=== PATIENT | female | born 2000 | race Caucasian/White ===

== ENCOUNTER 2018-03-01 04:05 | Emergency (ER) | payer BC, OTHER ==
[~2018-03-01] VITALS: Ht 160 cm; Wt 48.4 kg
[2018-03-01 04:08] VITALS: TEMP 36.3; Ht 160 cm; Wt 48.4 kg
[2018-03-01] MEDS ORDERED: SODIUM CHLORIDE 0.9% 1000ML 1,000 ML IV STA (04:21)
--- NOTE | 2018-03-01 04:27 | EMERGENCY ROOM VISIT NOTE ---
History Report prepared by Violeta: Lashay Hicks Under the Supervision of: Dr. Josafat Yap M.D. First contact with patient: 04:12 Chief Complaint: ABDOMINAL PAIN Stated Complaint: STOMACH PAIN,FEVERISH,CHILLS,VOMITING History of Present Illness The patient is a 17 year old female who presents to the Emergency Room with complaints of worsening abdominal pain starting a few days ago. The patient states that she vomited tonight and became diaphoretic after. The patient complains of feeling feverish, chills, loss of appetite, some burning with urination, constipation, and diarrhea. She states that when she can use the restroom, it is very minimal diarrhea. She reports that she took a laxative with no relief. The patient denies hematochezia, rash, nausea, a history of abdominal surgeries, concern for STDs, and the chance of . She notes that her parents don't know she is here, but she has tried calling them multiple times. The patient currently rates her pain as a 1/10 in severity. Source of History: patient Onset: a few days ago Position: abdomen Symptom Intensity: 1/10 Timing: worsening Associated Symptoms: + chills, + diaphoresis, + vomiting, + diarrhea, + urinary symptoms, No nausea, No hematochezia, No rash Note: The patient complains of feeling feverish, loss of appetite, and constipation. Review of Systems See HPI for pertinent positives & negatives. A total of 10 systems reviewed and were otherwise negative. Past Medical & Surgical Medical Problems: (1) No Known Active Medical Problems Family History Patient reports no known family medical history. Social History Smoking Status: Never Smoker Marital Status: single Housing Status: lives with roommate Occupation Status: [employer] student Current/Historical Medications Scheduled Control Pills ( Control Pills), 1 TAB PO DAILY Famotidine (Pepcid), 20 MG PO DIRECTED Allergies Coded Allergies: No Known Allergies (Unverified , 03/01/18) Physical Exam Vital Signs Date Time Temp Pulse Resp B/P (MAP) Pulse Ox O2 Delivery O2 Flow Rate FiO2 03/01/18 05:55 71 18 110/74 100 Room Air 03/01/18 04:08 36.3 89 18 111/74 98 Room Air Physical Exam GENERAL: Patient is mildly anxious appearing and in no acute distress. EYES: No scleral icterus, unremarkable pupils. ENT: Mucous membranes dry, no nasal congestion. NECK: No masses appreciated, no meningismus, trachea is midline. RESPIRATORY: No dyspnea. Clear to auscultation and equal bilaterally. No wheeze , no rhonchi. CARDIOVASCULAR: Regular rate and rhythm. No murmurs, rubs, gallops appreciated. GASTROINTESTINAL: Abdomen soft, nontender, no peritonitis. Bowel sounds positive. No masses appreciated. BACK: No midline tenderness, no CVA tenderness EXTREMITIES: Normal motion all extremities, no cyanosis, no edema. NEUROLOGIC: Alert and oriented, no acute motor or sensory deficits, no focal weakness, cranial nerves grossly intact. SKIN: No rash, no jaundice, no diaphoresis. Medical Decision & Procedures ER Provider Diagnostic Interpretation: KUB: The results were interpreted by me. Nonspecific bowel gas pattern. No obstruction appreciated. Stool continues through to rectum. Laboratory Results 03/01/18 04:20 Red Blood Count 4.85, Mean Corpuscular Volume 89.7, Mean Corpuscular Hemoglobin 31.3, Mean Corpuscular Hemoglobin Concent 34.9, Mean Platelet Volume 10.4, Neutrophils (%) (Auto) 60.9, Lymphocytes (%) (Auto) 28.9, Monocytes (%) (Auto) 7.0, Eosinophils (%) (Auto) 2.7, Basophils (%) (Auto) 0.3, Neutrophils # (Auto) 6.53, Lymphocytes # (Auto) 3.09, Monocytes # (Auto) 0.75, Eosinophils # (Auto) 0.29, Basophils # (Auto) 0.03 03/01/18 04:20 Test 03/01/18 04:20 03/01/18 05:05 White Blood Count 10.71 K/uL (4.8-10.8) Red Blood Count 4.85 M/uL (4.2-5.4) Hemoglobin 15.2 g/dL (12.0-16.0) Hematocrit 43.5 % (37-47) Mean Corpuscular Volume 89.7 fL (80-100) Mean Corpuscular Hemoglobin 31.3 pg (25-34) Mean Corpuscular Hemoglobin Concent 34.9 g/dl (32-36) Platelet Count 237 K/uL (130-400) Mean Platelet Volume 10.4 fL (7.4-10.4) Neutrophils (%) (Auto) 60.9 % Lymphocytes (%) (Auto) 28.9 % Monocytes (%) (Auto) 7.0 % Eosinophils (%) (Auto) 2.7 % Basophils (%) (Auto) 0.3 % Neutrophils # (Auto) 6.53 K/uL (1.4-6.5) Lymphocytes # (Auto) 3.09 K/uL (1.2-3.4) Monocytes # (Auto) 0.75 K/uL (0.11-0.59) Eosinophils # (Auto) 0.29 K/uL (0-0.5) Basophils # (Auto) 0.03 K/uL (0-0.2) RDW Standard Deviation 40.5 fL (36.4-46.3) RDW Coefficient of Variation 12.4 % (11.5-14.5) Immature Granulocyte % (Auto) 0.2 % Immature Granulocyte # (Auto) 0.02 K/uL (0.00-0.02) Anion Gap 9.0 mmol/L (3-11) Est Creatinine Clear Calc Drug Dose 83.3 ml/min Estimated GFR () 118.5 Estimated GFR (Non- 102.2 BUN/Creatinine Ratio 11.1 (10-20) Calcium Level 9.3 mg/dl (8.5-10.1) Total Bilirubin 0.5 mg/dl (0.2-1) Direct Bilirubin 0.2 mg/dl (0-0.2) Aspartate Amino Transf (AST/SGOT) 13 U/L (15-37) Alanine Aminotransferase (ALT/SGPT) 22 U/L (12-78) Alkaline Phosphatase 58 U/L (45-117) Total Protein 8.2 gm/dl (6.4-8.2) Albumin 4.1 gm/dl (3.4-5.0) Lipase 157 U/L (73-393) Urine Color YELLOW Urine Appearance CLOUDY (CLEAR) Urine pH 5.0 (4.5-7.5) Urine Specific [place] 1.028 (1.000-1.030) Urine Protein NEG (NEG) Urine Glucose (UA) NEG (NEG) Urine Ketones NEG (NEG) Urine Occult Blood 1+ (NEG) Urine Nitrite NEG (NEG) Urine Bilirubin NEG (NEG) Urine Urobilinogen NEG (NEG) Urine Leukocyte Esterase TRACE (NEG) Urine WBC (Auto) 10-30 /hpf (0-5) Urine RBC (Auto) 0-4 /hpf (0-4) Urine Hyaline Casts (Auto) 5-10 /lpf (0-5) Urine Epithelial Cells (Auto) >30 /lpf (0-5) Urine Bacteria (Auto) 2+ (NEG) Urine Test NEG (NEG) Laboratory results as reviewed by me. Medications Administered Medications (Trade) Dose Ordered Sig/David Route Start Time Stop Time Status Last Admin Dose Admin Sodium Chloride 1,000 ml @ 999 mls/hr Q1H1M STAT IV 03/01/18 04:21 03/01/18 05:21 DC 03/01/18 04:33 999 MLS/HR Ranitidine HCl (zANTac SYRUP) 150 mg NOW ONCE PO 03/01/18 05:45 03/01/18 05:46 DC 03/01/18 05:53 150 MG Lidocaine HCl (Viscous Lidocaine 2% Soln) 20 ml STK-MED ONCE .ROUTE 03/01/18 05:51 03/01/18 05:52 DC 03/01/18 05:53 20 ML Al Hydroxide/Mg Hydroxide (Maalox Susp) 30 ml STK-MED ONCE .ROUTE 03/01/18 05:51 03/01/18 05:52 DC 03/01/18 05:53 30 ML Ondansetron HCl (ZOFRAN ODT 4MG Home Pack) 1 homepack UD ONCE PO 03/01/18 06:45 03/01/18 06:46 DC 03/01/18 06:41 1 HOMEPACK ED Course 0417: The patient was evaluated in room A10. A complete history and physical exam was performed. 0421: Ordered NSS 1000 ml @ 999 mls/hr IV. Medical Decision Differential: Gastroenteritis, Food Borne, Esophageal Perforation, , Electrolyte Abnormality, Dehydration, Intraabdominal Infection, UTI/ Pyelonephritis, Bowel Obstruction, Biliary Pathology, amongst other pathology entertained. 17 yr old female with vague complaints of abdominal pain. After several discussions with his seems like primary issue is epigastric discomfort, gnawing and coming in waves. This leads to nausea and even vomited yesterday. Notes decreased BMs as well. Suspect much of this is gastritis as admits increased stress, poor appetite with irregular meals, recent change in BC. She has unremarkable KUB, normal labs and completely benign abdominal exam on repeat exams. She is not septic and does not have surgical abdomen. Symptoms and labs are not consistent with hepatic/portal vein thrombosis. Exam is not consistent with cholecystitis. She has no TTP in RLQ (nor elsewhere for that matter). She is not . UA with 2+ bacteria but with 30+ epis and no UTI symptoms I do not feel this is UTI and will await culture. She looks well but is clearly a bit on the anxious side. Initially when going to discharge her she noted pain coming back and thus given GI Cocktail with resolution. Will send home with nausea meds and advised Pepcid (or other anti-acid) for next week, better eating, and if worsening/other concerns RTED for further evaluation. Medication Reconcilliation Current Medication List: was personally reviewed by me Impression Primary Impression: Epigastric abdominal pain Additional Impression: Nausea & vomiting Scribe Attestation The scribe's documentation has been prepared under my direction and personally reviewed by me in its entirety. I confirm that the note above accurately reflects all work, treatment, procedures, and medical decision making performed by me. Departure Information Dispostion Home / Self-Care Prescriptions Famotidine (Pepcid) 20 Mg Tab 20 MG PO DIRECTED, #30 TAB Take twice daily for 5 days and then once daily. Prov: Josafat Yap M.D. 03/01/18 Patient Instructions ED Epigastric Pain LILIA, [facility] Problem Qualifiers
[2018-03-01] MEDS ORDERED: BCPILLS PO (04:30)
[2018-03-01 04:44] LABS: BASO % 0.3 %; BASO ABS # 0.03 K/uL (0-0.2); EOS % 2.7 %; EOS ABS # 0.29 K/uL (0-0.5); HEMATOCRIT 43.5 % (37-47); HEMOGLOBIN 15.2 g/dL (12.0-16.0); IG# 0.02 K/uL (0.00-0.02); LYMPH % 28.9 %; LYMPH ABS # 3.09 K/uL (1.2-3.4); MEAN CELL VOLUME 89.7 fL (80-100); MEAN CORPUSCULAR HEMOGLOBIN 31.3 pg (25-34); MEAN CORPUSCULAR HGB CONC 34.9 g/dl (32-36); MEAN PLATELET VOLUME 10.4 fL (7.4-10.4); MONO ABS # 0.75 K/uL (0.11-0.59); NEUT % 60.9 %; NEUT ABS # 6.53 K/uL (1.4-6.5); PLATELET COUNT 237 K/uL (130-400); RED CELL DISTRIBUTION WIDTH CV 12.4 % (11.5-14.5); RED CELL DISTRIBUTION WIDTH SD 40.5 fL (36.4-46.3); WHITE BLOOD COUNT 10.71 K/uL (4.8-10.8)
[2018-03-01 05:07] LABS: ALBUMIN 4.1 gm/dl (3.4-5.0); CALCIUM 9.3 mg/dl (8.5-10.1); CREATININE 0.83 mg/dl (0.60-1.20); TOTAL PROTEIN 8.2 gm/dl (6.4-8.2)
[2018-03-01 05:11] LABS: POTASSIUM 4.1 mmol/L (3.5-5.1)
[2018-03-01] MEDS ORDERED: GI COCKTAIL PO STA (05:45)
[2018-03-01] MEDS ORDERED: RANITIDINE HCL SYRUP 150 MG/10 ML UDC PO ONE (05:45)
[2018-03-01] MEDS ORDERED: ALUMINUM/MAGNESIUM SUSP 30 ML UDC ONE (05:51)
[2018-03-01] MEDS ORDERED: LIDOCAINE HCL 2% VISC SOLN 20 ML UDC ONE (05:51)
[2018-03-01] MEDS ORDERED: FAMO20TA11 PO (06:37)
[2018-03-01] MEDS ORDERED: ONDANSETRON HOME PACK 4MG OD TAB PO ONE (06:45)
[2018-03-01 06:49] VITALS: BP 110/64; PULSE 78; O2SAT 98
--- NOTE | 2018-03-01 07:41 | DIAGNOSTIC IMAGING REPORT ---
KUB CLINICAL HISTORY: 17 years-old Female presenting with constipation. TECHNIQUE: Single supine view of the abdomen was obtained. COMPARISON: None. FINDINGS: Moderate stool burden in the distal descending colon and rectum. Paucity of small bowel gas, nonspecific. No gross evidence of bowel obstruction.. No gross pneumoperitoneum. Allowing for bowel gas and stool, no calcifications to suggest nephrolithiasis. Osseous structures normal. Lung bases clear. IMPRESSION: 1. Moderate stool burden in the distal descending colon and rectum. No bowel obstruction. Electronically signed by: Dwain Soni M.D. 03/01/2018 7:39 AM Dictated Date/Time: 03/01/2018 7:38 AM
== END 2018-03-01 06:51 | disposition home or self-care (01) ==
LOC: C.EDB 04:06 → C.EDA 06:51
DX: R10.13 Epigastric pain (principal); R11.2 Nausea with vomiting, unspecified